=== PATIENT | male | born 1955 | race Caucasian/White ===

== ENCOUNTER 2020-12-14 07:52 | Emergency (ER) | payer MEDICARE, SELFPAY ==
[2020-12-14] VITALS (8 sets, daily range): BP systolic 103–141; BP diastolic 71–83; PULSE 72–116; RESP 11–24; TEMP 36.8–37.2; O2SAT 93–100
--- NOTE | ~2020-12-14 | CT_ITS ---
EXAMINATION: CT abdomen pelvis w con DATE: 12/14/2020 10:44 INDICATION: Diarrhea TECHNIQUE: Computed tomography (CT) of the abdomen and pelvis was performed with 100 cc Omnipaque 350 intravenous contrast. Automated exposure control and iterative reconstruction technique were employe d. Exam dose: 1159.78 mGy-cm total exam DLP. COMPARISON: 12/27/2007 CT abdomen FINDINGS: Mild bilateral lower lobe dependent atelectasis. No pericardial or pleural effusion. Multiple gallbladder polyps are suggested. No gallbladder wall thickening or pericholecystic fluid or fat stranding. No bile duct or pancreatic duct dilatation. No hepatic space-occupying mass lesion is evident. No pancreatic mass lesion or calcification. Normal morphology of the adrenal glands. Normal splenic size. Probable 3 mm upper pole probable left renal cyst. 8 mm lateral mid left renal circumscribed hypoenha ncing lesion, possibly a cyst, but too small to definitively characterize. No right renal mass lesion. No urinary tract calculus or hydroureteronephrosis. There is evidence, calcification of the abdominal aorta and iliac arteries but no abdominal aortic an eurysm. No intraperitoneal or retroperitoneal or pelvic mass lesion or adenopathy or ascites is evide nt. There is prominent prostate enlargement. The urinary bladder appears unremarkable. There are diverticula of the sigmoid and descending colon; no CT evidence of diverticulitis. No bowel obstruction, bowel wall thickening, pneumatosis or intraperitoneal free air is evident. The appendix is not identified; no CT evidence of appendicitis. Degenerative changes of the lower thoracic and lumbar spine. Bilateral hip osteoarthritis. No suspici ous osteolytic or osteoblastic lesions are noted. IMPRESSION: Probable gallbladder polyps Diverticulosis of the left colon; no CT evidence of diverticulitis Probable subcentimeter left renal cysts, too small to definitively characterize Prominent prostate enlargement Reviewed, dictated and finalized at [facility]. Reviewed, dictated and finalized at [facility].
--- NOTE | ~2020-12-14 | XR_ITS ---
XR chest 2V DATE: 12/14/2020 08:20 INDICATION: Diaphoresis. Weakness. TECHNIQUE: AP and lateral views COMPARISON: None FINDINGS: Heart size is within normal range. There is aortic calcification and tortuosity. No hilar o r mediastinal enlargement is evident. No pulmonary infiltrate or consolidation, pleural effusion or pulmonary vascular congestion or pneumo thorax. Diffuse osteopenia. Degenerative spurring of the thoracic spine. IMPRESSION: No active cardiopulmonary disease Aortic calcification and tortuosity Diffuse osteopenia; degenerative spurring of thoracic spine Reviewed, dictated and finalized at [facility].
--- NOTE | 2020-12-14 07:56 | ECG_ITS ---
Measurements Intervals [place] Rate: 100 P: 5 KS: 140 QRS: -37 QRSD: 117 T: 31 QT: 353 QTc: 456 Interpretive Statements SINUS TACHYCARDIA LEFT AXIS DEVIATION INTRAVENTRICULAR CONDUCTION DELAY DELAYED PRECORDIAL R/S TRANSITION BASELINE ARTIFACT- I, II, III, AVR, AVL, AVF, V1-V6 ABNORMAL ECG Electronically Signed On 12-14-2020 8:01:54 CDT by Tyler Banuelos D.O.
[2020-12-14 08:04] LABS: Glucose Point of Care 160 mg/dl (65-105)
[2020-12-14 08:25] LABS: Hematocrit 44.4 % (42.0-52.0); Mean Corpuscular HGB Conc 33.8 g/dl (32-36); Mean Corpuscular Hemoglobin 29.2 pg (26-34); Mean Corpuscular Volume 86.4 fl (80-100); Mean Platelet Volume 11.1 fl (7.4-10.4); Platelet Count Result 173 k/mm3 (150-375); Red Blood Count 5.14 M/mm3 (4.6-6.20); Red Cell Distribution Width 12.7 % (11.5-14.5); White Blood Count 14.2 K/mm3 (4.5-10.0)
--- NOTE | 2020-12-14 08:40 | PC.NURSE ---
Attempted to stand patient for orthostatic VS. Pt stood up with assistance but legs were shaking after approx 15sec and stated he felt they were too weak. Pt assisted back to bed
[2020-12-14] MEDS: SODIUM CHLORIDE 0.9% IV 3,100 ML/1,000 ML BAG 999 ML IV CONT ×3 (08:47→10:15)
[2020-12-14 08:50] LABS: Band Neutrophils Percent 8 % (0-6); Lymphocytes Absolute Manual 0.56 K/mm3 (1.1-4.5); Monocytes Absolute Manual 0.56 K/mm3 (0.1-0.90); Monocytes Percent Manual 4 % (3-9); Neutrophils Absolute Manual 13.06 K/mm3 (1.3-6.7); Neutrophils Percent Manual 84 % (46-73); Total Cells Counted 100
[2020-12-14 08:51] LABS: Large Platelets Present; Platelet Estimate Adequate (Adequate)
[2020-12-14 09:04] LABS: Alanine Aminotransferase 34 U/L (4-50); Albumin Level 4.6 g/dL (3.5-5.1); Alkaline Phosphatase 83 U/L (38-126); Anion Gap 13 mmol/L (8-16); Aspartate Amino Transferase 45 U/L (17-59); Bilirubin,Total 2.1 mg/dL (0.2-1.3); Blood Urea Nitrogen 19 mg/dL (9-20); Calcium 9.2 mg/dL (8.4-10.2); Carbon Dioxide 22 mmol/L (22-30); Chloride 102 mmol/L (98-107); Estimated CRCL calculation 88 ml/min; Estimated Glomerular Filt Rate > 60; Glucose 139 mg/dL (75-110); Potassium 3.8 mmol/L (3.4-5.0); Sodium 137 mmol/L (137-145)
--- NOTE | 2020-12-14 09:19 | ED.WEAKNESS ---
HPI - Weakness General Chief complaint: Weakness Stated complaint: WEAKNESS/FALL Time Seen by Provider: 12/14/20 08:03 History of Present Illness HPI Narrative: Patient is a 65-year-old male who presents ER with weakness. Patient was getting out of bed this morning and felt profoundly weak. He was diaphoretic and was having trouble standing up. He had a large loose bowel movement for EMS. Patient has some dementia that limits history taking. reports he has been well for the last few days and that this was a sudden change for him. No known sick contacts. Related Data Allergies Allergy/AdvReac Type Severity Reaction Status Date / Time No Known Allergies Allergy Unknown Verified 06/12/19 08:06 Review of Systems Review of Systems: All systems reviewed & are unremarkable except as noted in HPI and below (Limited due to dementia) Constitutional: Constitutional: Denies fever(s) and Reports weakness Comments: Sweats Cardiovascular: Cardiovascular: Denies chest pain and Denies radiating jaw, neck or arm pain Respiratory: Respiratory: Denies cough and Denies dyspnea Gastrointestinal: Gastrointestinal: Denies abdominal pain, Reports diarrhea, Reports nausea and Denies vomiting PMFSH Past Medical History Medical History (Updated 12/14/20 @ 13:31 by Kyle Mendieta MD) Dementia Hyperlipidemia Surgical History Surgical History (Updated 12/14/20 @ 09:21 by Kyle Mendieta MD) No pertinent past surgical history Family History Family History Father Family history of coronary artery disease Family history of cardiovascular disease Mother Family history of malignant neoplasm of kidney Grandparent Diabetes mellitus Social History Social History Smoking status: Never smoker Alcohol intake: never Exam Narrative: Exam Narrative: GENERAL: Well-appearing, well-nourished, and in no acute distress. HEAD: Normocephalic, atraumatic. ENT: Mucous membranes moist. CHEST: Clear to auscultation. No respiratory distress. HEART: Regular rate and rhythm. Normal peripheral pulses. ABDOMEN: Soft, nontender, nondistended. EXTREMITIES: Normal range of motion. No edema. SKIN: Warm, dry, no rash. NEURO: Alert and oriented x3. PSYCH: Normal mood and affect. Course Course Emergency Course: Patient hydrated up and ambulatory without issue. P.o. challenged without issue. Discharge home. Vital Signs Vital signs: Vital Signs Temperature 98.9 F 12/14/20 07:51 Pulse Rate 116 H 12/14/20 07:51 Respiratory Rate 11 L 12/14/20 07:51 Blood Pressure 103/71 12/14/20 07:51 Pulse Oximetry 96 12/14/20 07:51 Temperature 98.9 F 12/14/20 07:51 Pulse Rate 80 12/14/20 13:10 Respiratory Rate 16 12/14/20 13:10 Blood Pressure 134/80 12/14/20 13:10 Pulse Oximetry 96 12/14/20 13:10 MDM - Weakness Lab Data Result diagrams: 12/14/20 07:59 12/14/20 08:45 Labs: Lab Results 12/14/20 12/14/20 12/14/20 Range/Units 07:59 08:02 08:45 WBC 14.2 H (4.5-10.0) K/mm3 RBC 5.14 (4.6-6.20) M/mm3 Hgb 15.0 (14.0-18.0) g/dL Hct 44.4 (42.0-52.0) % MCV 86.4 (80-100) fl MCH 29.2 (26-34) pg MCHC 33.8 (32-36) g/dl RDW 12.7 (11.5-14.5) % Plt Count 173 (150-375) k/mm3 MPV 11.1 H (7.4-10.4) fl Immature Gran % (Auto) Not Reportable Neut % (Auto) Not Reportable Lymph % (Auto) Not Reportable [place] % (Auto) Not Reportable Eos % (Auto) Not Reportable Baso % (Auto) Not Reportable Lymph # (Auto) Not Reportable [place] # (Auto) Not Reportable Eos # (Auto) Not Reportable Baso # (Auto) Not Reportable Abs Immat Gran (auto) Not Reportable Absolute Neuts (auto) Not Reportable Absolute Nucleated RBC Not Reportable Total Counted 100 Neutrophils % (Manual) 84 H (46-73) % Band Ne
[2020-12-14 10:13] LABS: Add Urine Microscopic? YES; Appearance Urine Clear (Clear); Bacteria Urine Trace /hpf; Bilirubin Urine Negative (Negative); Blood Urine 2+ (Negative); Color Urine Yellow (Yellow); Glucose Urine UA Negative (Negative); Ketones Urine 1+ mg/dL (Negative); Leukocyte Esterase Ur Trace LEU/UL (Negative); Mucus Urine Heavy /lpf; Nitrate Urine Negative (Negative); Protein Urine Negative (Negative); RBC Urine 51-75 /hpf (0-2); Specific Grav Ur 1.028 (1.001-1.035); Squamous Epithelial Cell Urine Rare /hpf (Few); Urobilinogen Urine Negative mg/dL (<2.0); WBC Urine 16-20 /hpf
== END 2020-12-14 14:14 | disposition home or self-care (01) ==
PROVIDERS: Emergency Provider Emergency Medicine; PCP Physician Assistant
DX: K52.9 Noninfective gastroenteritis and colitis, unspecified (principal); F03.90 Unspecified dementia, unspecified severity, without behavioral disturbance, psychotic disturbance, mood disturbance, and anxiety; E78.5 Hyperlipidemia, unspecified
CPT/HCPCS: 36415; 51701; 71046; 74177; 80053; 81001; 82948; 85025; 87086; 87088; 93005; 96360; 96361; 99284; J7030; Q9967

== ENCOUNTER 2021-05-26 08:19 | Emergency (ER) | payer MEDICARE, SELFPAY ==
[2021-05-26 08:29] VITALS: BP 131/82; PULSE 89; RESP 16; TEMP 37.2; O2SAT 99
--- NOTE | 2021-05-26 08:50 | ED.URI ---
HPI - URI/Sore Throat General Chief Complaint: Upper Respiratory Infection Stated Complaint: sinus infection Source: patient and RN notes reviewed Mode of arrival: ambulatory History of Present Illness HPI Narrative: This is a 66-year-old female who presented to urgent care with complaints of nasal drainage that he has had for approximately 1 month he does have slight frontal tenderness. The patient denies SOB, CP, palpitation, extremity numbness, lightheadedness, dizziness, constipation, diarrhea, chills, or fever. Patient has a history of cellulitis he was last at his primary care physician on 06/12/2019. Related Data Home Medications Medication Instructions Recorded Confirmed donepezil 10 mg PO DAILY 05/26/21 05/26/21 duloxetine 60 mg PO DAILY 05/26/21 05/26/21 rosuvastatin 10 mg PO DAILY 05/26/21 05/26/21 Allergies Allergy/AdvReac Type Severity Reaction Status Date / Time No Known Allergies Allergy Unknown Verified 05/26/21 08:54 Review of Systems Review of Systems: A 14 organ system Review of Systems was performed and pertinent positives included in the HPI, otherwise remaining ROS is negative. [facility] Past Medical History Medical History Dementia Hyperlipidemia Surgical History Surgical History No pertinent past surgical history Family History Family History Father Family history of coronary artery disease Family history of cardiovascular disease Mother Family history of malignant neoplasm of kidney Grandparent Diabetes mellitus Social History Social History Smoking status: Never smoker Alcohol intake: never Exam Narrative: GENERAL: This is a well-nourished, well-developed patient, in no apparent distress. HEAD: normocephalic, atraumatic. Frontal tenderness EYES: PERRL. Sclera clear/white. Vision is grossly intact. EARS: External ears normal, auditory canals clear and without drainage, TMs normal without perforation. Hearing grossly intact. NOSE: External nose normal with no obvious nasal discharge, nares without redness, no rhinorrhea. THROAT: Mucous membranes moist, posterior pharynx clear. NECK: Neck supple, non-tender without lymphadenopathy, masses or thyromegaly. CARDIOVASCULAR: Regular rate and rhythm without murmurs, gallops, or rubs. RESPIRATORY: Clear to auscultation. Breath sounds equal bilaterally. No wheezes, rales, or rhonchi. GASTROINTESTINAL: Abdomen soft, non-tender, nondistended. Bowel sounds are active. No hepato-splenomegaly, or palpable masses. No guarding. SKIN: warm, intact with no suspicious lesions or rash, good texture and turgor. NEURO: awake, alert, and oriented to person, place and time. There were no obvious focal neurologic abnormalities. Steady gait EXTREMITIES: Normal range of motion. No edema. No calf tenderness. Negative Homans sign bilaterally. BACK: Nontender without deformity or crepitance. No flank tenderness. Course Course Emergency Course: Patient will be treated for cellulitis given doxycycline with Flonase and Claritin Vital Signs Vital signs: Vital Signs Temperature 99.0 F 05/26/21 08:29 Pulse Rate 89 05/26/21 08:29 Respiratory Rate 16 05/26/21 08:29 Blood Pressure 131/82 05/26/21 08:29 Pulse Oximetry 99 05/26/21 08:29 Temperature 99.0 F 05/26/21 08:29 Pulse Rate 89 05/26/21 08:29 Respiratory Rate 16 05/26/21 08:29 Blood Pressure 131/82 05/26/21 08:29 Pulse Oximetry 99 05/26/21 08:29 MDM - URI/Sore Throat Differential Diagnosis Differential diagnosis: Likely upper respiratory infection, sinusitis, viral infection and pharyngitis Discharge Plan Discharge Clinical Impression: Sinusitis Qualifiers: Sinusitis location: frontal Chronicity: acute Recurrence: recurrent Qualified
== END 2021-05-26 09:10 | disposition home or self-care (01) ==
PROVIDERS: Emergency Provider Nurse Practitioner
DX: J01.11 Acute recurrent frontal sinusitis (principal); F03.90 Unspecified dementia, unspecified severity, without behavioral disturbance, psychotic disturbance, mood disturbance, and anxiety; E78.5 Hyperlipidemia, unspecified
CPT/HCPCS: 99213; G0463